=== PATIENT | female | born 2005 | race Caucasian/White ===

== ENCOUNTER 2024-02-20 08:00 | Outpatient (RCR) | payer OTHER, SELFPAY | END 2024-04-09 13:40 | disposition home or self-care (01) | LOC: HO.WCC 08:00 | PROVIDERS: PCP Pediatrics Adolescent Medicine; Visit Provider Physician Assistant | DX: T25.321A Burn of third degree of right foot, initial encounter (principal); T25.221A Burn of second degree of right foot, initial encounter; T25.231A Burn of second degree of right toe(s) (nail), initial encounter; T31.0 Burns involving less than 10% of body surface; X12.XXXA Contact with other hot fluids, initial encounter; Y93.9 Activity, unspecified; Y92.89 Other specified places as the place of occurrence of the external cause; Y99.9 Unspecified external cause status | CPT/HCPCS: 16020; 99212 ==

== ENCOUNTER 2024-07-11 08:51 | Outpatient (RCR) | payer OTHER, SELFPAY | END 2024-08-10 13:43 | disposition home or self-care (01) | LOC: HO.WCC 08:51 | PROVIDERS: PCP Pediatrics Adolescent Medicine; Visit Provider Surgery | DX: T25.221D Burn of second degree of right foot, subsequent encounter (principal) | CPT/HCPCS: 99212 ==